=== PATIENT | male | born 1995 | race Caucasian/White ===

== ENCOUNTER 2018-01-19 12:28 | Emergency (ER) | payer OTHER ==
[2018-01-19 12:39] VITALS: RESP 16
--- NOTE | 2018-01-19 13:35 | EDPHY ---
H & P Smoking Status: Never smoked Time Seen by Provider: 01/19/18 13:03 HPI/ROS: CHIEF COMPLAINT: Left knee pain HISTORY OF PRESENT ILLNESS: 23-year-old male states that last evening while intoxicated he slipped on ice and fell impacting his left knee. He awoke with left knee pain. He was able to bear weight last night. He is currently unable to bear weight this morning. States that he did directly impact the area. No proximal distal pain or injury. No head injury. PHYSICAL EXAM (Prior to examination, patient consented to physical exam, hands were washed and my usual and customary physical exam procedures followed) 1) GENERAL: Well-developed, well-nourished, alert and oriented. Appears to be in no acute distress. 2) HEAD: Normocephalic 3) HEENT: Pupils equal, round, reactive to light bilaterally. 4) LUNGS: Breathing comfortably. 5) MUSCULOSKELETAL: Exam of the left knee shows ecchymosis to the medial aspect with associated tenderness. No tenderness over the patella.. Compartments are soft. 6) SKIN: Intact 7) VASCULAR: DP,PT pulses and cap refill present and brisk distally DIFFERENTIAL DIAGNOSIS: in no particular order including but not limited to fracture, sprain, compartment syndrome, septic arthritis, DVT Procedure: Crutches indications for crutch use discussed with patient. Patient fitted for crutches by ER staff. Observed ambulating with crutches. I think the patient has the capacity to safely use crutches. Usual and customary crutch walking precautions provided Procedure: Splint A knee immobilizer splint was applied by ER aircraft launch and recovery technician. After application of the splint I returned and re-examined the patient. The splint was adequately immobilizing the joint and distal to the splint the patient's circulation and sensation were intact. Patient shows no signs of compartment syndrome. Was given orthopedic precautions. MEDICAL DECISION MAKING Serial evaluations performed on patient. I discussed the limitations of x-ray in diagnosis of knee pain and injury. At this time I do not think that emergent MRI is currently indicated. However, I have recommended follow-up with Orthopedic surgery and provided this referral information. Informed the patient that outpatient MRI may be indicated. Doubt septic arthritis. Doubt compartment syndrome. Doubt DVT. Care of patient under supervision of primary supervising physician Dr Leon . (Darryl Lucas) Constitutional: Initial Vital Signs Temperature (C) 36.8 C 01/19/18 12:35 Heart Rate 65 01/19/18 12:35 Respiratory Rate 16 01/19/18 12:35 Blood Pressure 155/82 H 01/19/18 12:35 O2 Sat (%) 97 01/19/18 12:35 O2 Delivery Mode Room Air Allergies/Adverse Reactions: No Known Allergies Allergy (Verified 01/19/18 12:37) Home Medications: Medication Instructions Recorded oxyCODONE/APAP 5/325 [Percocet 1 tab PO Q6 #5 tab 01/19/18 5/325] MDM/Departure - MDM Imaging Results: Imaging Impressions Knee X-Ray 01/19/18 12:50 Impression: Negative for fracture. Images reviewed myself (Darryl Lucas) ED Course/Re-evaluation: PHYSICIAN DOCUMENTATION: The patient was evaluated and managed by the Physician Supply Chain Consultant. My co- signature indicates that I have reviewed this chart and I agree with the findings and plan of care as documented. I am the secondary supervising physician. (Guerrero Leon) - Depart Disposition: Home, Routine, Self-Care Clinical Impression: Left medial knee pain Condition: Good Instructions: Knee Pain (ED) Additional Instructions: Return to the ER immediately if you experience discoloration, have worsening pain, numbness, tingling, or any other symptoms that concern you. If you received x-rays in the emergency department today, be advised, that ligamentous , tendon, muscular, and other non-bony injury cannot be fully ruled out. Try to keep your affected extremity elevated above the level of your chest, and keep cold packs on the affected area, for the next 48 hours. Prescriptions: oxyCODONE/APAP 5/325 [Percocet 5/325] 1 tab PO Q6 #5 tab Referrals: Shaun Alvarado MD [Medical Doctor] - 1-2 days without fail
[2018-01-19 13:52] VITALS: BP 159/78; PULSE 73; TEMP 98.1; O2SAT 95
== END 2018-01-19 14:18 | disposition home or self-care (01) ==
DX: S89.92XA Unspecified injury of left lower leg, initial encounter (principal); W01.0XXA Fall on same level from slipping, tripping and stumbling without subsequent striking against object, initial encounter